=== PATIENT | female | born 1990 | race Caucasian/White ===

== ENCOUNTER 2022-04-11 08:38 | Emergency (ER) | payer MEDICAID ==
[~2022-04-11] VITALS: Ht 172.7 cm; Wt 78.6 kg
[2022-04-11 08:46] VITALS: BP 112/57
--- NOTE | 2022-04-11 08:56 | NUR ---
PT AMBULATED TO ER BED 2 WITH A STEADY GAIT.
--- NOTE | 2022-04-11 08:59 | NUR ---
ASSUMED CARE OF PT AT THIS TIME.
--- NOTE | 2022-04-11 09:01 | NUR ---
31 Y/O FEMALE C/O LEFT PELVIC PAIN 03/16 DESCRIBES THROBBING AND SHARP CONSTANT RADIATES TO LOWER BACK X 3 DAYS. DENIES FEVR/CHILLS. DENEIS N/V/D. TOM DYSURIA. DENIES HEMATURIA. DENIES PMH NKA
[2022-04-11] MEDS ORDERED: KETOROLAC 60 MG/2 ML VIAL IM ONE (09:10)
--- NOTE | 2022-04-11 09:13 | NUR ---
US TECH AT PT BEDSIDE.
[2022-04-11] MEDS ORDERED: ACET-8386 PO (10:52)
[2022-04-11] MEDS ORDERED: IBUP-2213 PO (10:52)
[2022-04-11 10:57] VITALS: BP 134/82
--- NOTE | 2022-04-11 10:57 | NUR ---
PT SITTING IN BED, VISIBLE EQUAL RISE AND FALL, RR EVEN AND UNLABORED. WILL CONTINUE TO MONITOR.
--- NOTE | 2022-04-11 11:09 | NUR ---
Patient discharged with v/s stable. Written and verbal after care instructions given and explained. Patient alert, oriented and verbalized understanding of instructions. Ambulatory with steady gait. All questions addressed prior to discharge. ID band removed. Patient advised to follow up with PMD. Rx of hydrocodone, ibuprofen (Sent) given. Patient educated on indication of medication including possible reaction and side effects. Opportunity to ask questions provided and answered.
== END 2022-04-11 11:09 | disposition home or self-care (01) ==
LOC: MED 08:38
DX: R10.32 Left lower quadrant pain (principal)
CPT/HCPCS: 76856; 81002; 81025; 96372; 99284; J1885; Q0092

== ENCOUNTER 2022-08-08 10:17 | Emergency (ER) | payer MEDICAID ==
[~2022-08-08] VITALS: Ht 172.7 cm; Wt 70.3 kg
[~2022-08-08 10:17] MED LIST: ACET-8905 PO; IBUP-2213 PO
[2022-08-08 10:21] VITALS: BP 128/70
--- NOTE | 2022-08-08 10:29 | NUR ---
31YO FEMALE PT C/O THROBBING 8/10 HEADACHE X3DAYS. REPORTS SUDDEN CONSTANT ONSET W/O RELIEF AFTER TAKING EXCEDRIN. NOTES DIZZINESS WHEN LAYING DOWN. DENIES N/V/D, CHANGE IN VISION, CHEST PAIN, FEVER, CHILLS OR SOB. PT AAOX4, RESPIRATIONS EVEN AND UNLABORED. AMB W/ STEADY GAIT. SITTING IN BEDSIDE CHAIR. LIGHTS DIMMED PER COMFORT. HX:DENIES NKA
[2022-08-08] MEDS ORDERED: METOCLOPRAMIDE 10 MG TAB PO ONE (11:00)
[2022-08-08] MEDS ORDERED: KETOROLAC 30 MG/ML VIAL IM ONE (11:00)
[2022-08-08] MEDS ORDERED: NAPR-1704 PO (11:53)
--- NOTE | 2022-08-08 12:02 | NUR ---
Patient discharged with v/s stable. Written and verbal after care instructions ABOUT TENSION HEADACHE given and explained. Patient alert, oriented and verbalized understanding of instructions. Ambulatory with steady gait. All questions addressed prior to discharge. ID band removed. Patient advised to follow up with PMD. Rx of NAPROSYN given. Patient educated on indication of medication including possible reaction and side effects. Opportunity to ask questions provided and answered.
== END 2022-08-08 12:02 | disposition home or self-care (01) ==
LOC: MED 10:17
DX: G44.209 Tension-type headache, unspecified, not intractable (principal); Z79.899 Other long term (current) drug therapy
CPT/HCPCS: 96372; 99283; J1885; J8597